=== PATIENT | male | born 1980 | race Caucasian/White ===

== ENCOUNTER 2024-08-12 19:21 | Emergency (ER) | payer SELFPAY ==
[2024-08-12 19:23] VITALS: BP 172/108
[2024-08-12 20:34] LABS: % Basophils 0.4 % (0-2); % Eosinophils 0.6 % (0-6); % Immature Granulocytes 0.3 % (0-0.5); % Lymphocytes 16.4 % (20.5-51.1); % Monocytes 9.9 % (1.7-9.3); % Neutrophils 72.4 % (42.2-75.2); Absolute Basophils 0.1 10^3/uL (0-0.2); Absolute Eosinophils 0.1 10^3/uL (0-0.7); Absolute Lymphocytes 2.3 10^3/uL (1.2-3.4); Absolute Monocytes 1.4 10^3/uL (0.1-0.6); Absolute Neutrophils 10.2 10^3/uL (1.4-6.5); Hematocrit 50.7 % (39.0-52.0); Hemoglobin 18.4 g/dL (13.0-18.0); Mean Corp Hgb Conc. 36.3 g/dL (33.0-37.0); Mean Corpuscular Hgb 32.9 pg (27.0-31.0); Mean Corpuscular Volume 90.5 fL (80.0-94.0); Mean Platelet Volume 10.2 fL (7.4-10.4); Nucleated Red Blood Cells % 0 % (-); Platelet Count 227 10^3/uL (130-400); Red Cell Dist. Width 12.7 % (11.5-14.5); White Blood Cell Count 14.1 10^3/uL (4.8-10.8)
[2024-08-12] MEDS: DILAUDID 0.5 MG IV (20:35)
[2024-08-12 20:41] VITALS: BP 157/98
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
[2024-08-12 20:44] LABS: INR 1.02; PT 13.2 Sec (11.4-14.6)
[2024-08-12 20:56] LABS: ALT (SGPT) 36 U/L (0-50); AST (SGOT) 49 U/L (17-59); Albumin 5.5 g/dl (3.5-5.0); Alkaline Phosphatase 107 U/L (38-126); Blood Urea Nitrogen 8 mg/dl (9-20); Calcium 10.3 mg/dl (8.4-10.2); Carbon Dioxide 25 mmol/L (22-30); Chloride 96 mmol/L (98-107); Glucose 102 mg/dl (70-99); Potassium 4.5 mmol/L (3.5-5.1); Sodium 138 mmol/L (135-145); Total Bilirubin 0.9 mg/dl (0.2-1.3); Total Protein 8.7 g/dl (6.3-8.2); eGFR > 60.00
[2024-08-12 21:13] VITALS: BP 161/89
== END 2024-08-12 21:49 | disposition home or self-care (01) ==
LOC: EMR 19:21
PROVIDERS: Physician Assistant; EMERGENCY PHYSICIAN Emergency Medicine
DX: S20.211A Contusion of right front wall of thorax, initial encounter (principal); R10.84 Generalized abdominal pain; V29.881A Electric (assisted) bicycle rider (driver) (passenger) injured in other specified transport accidents, initial encounter; F17.200 Nicotine dependence, unspecified, uncomplicated; J98.4 Other disorders of lung
CPT/HCPCS: 99285; 96374; 71260; 74177; 80053; 85025; 85610; Q9967

== ENCOUNTER 2024-08-31 06:10 | Day surgery (SDC) | payer OTHER, SELFPAY ==
[2024-08-27 08:52] LABS: APTT 30.2 Sec (23.4-35.0); INR 0.93; PT 12.8 Sec (11.4-14.6)
[2024-08-27 12:49] VITALS: BMI 22.7
[2024-08-31] VITALS (10 sets, daily range): BP systolic 110–148; BP diastolic 70–91; BMI 22.7
--- NOTE | 2024-08-31 13:54 | SUR.PHASEI ---
vss, comfortable, on room air. PCXR completed - await Dr Chatterjee to ready film - along with radiology
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
== END 2024-08-31 14:24 | disposition home or self-care (01) ==
LOC: GI 06:10
PROVIDERS: ATTENDING PHYSICIAN Internal Medicine Critical Care Medicine
DX: C34.11 Malignant neoplasm of upper lobe, right bronchus or lung (principal); C77.1 Secondary and unspecified malignant neoplasm of intrathoracic lymph nodes; R59.0 Localized enlarged lymph nodes; R91.1 Solitary pulmonary nodule; R91.8 Other nonspecific abnormal finding of lung field; R93.89 Abnormal findings on diagnostic imaging of other specified body structures
CPT/HCPCS: 31629; 31653; 31624; 31623; 31627; 31654; 88172; 88173; 88305; 36415; 71045; 76000; 85610; 85730; 87015; 87070; 87102; 87116; 87205; 88112; 88177; 88333; 88341; 88342; 93005; 94640; C1887